=== PATIENT | male | born 1935 ===

== ENCOUNTER 2021-02-07 16:49 | Emergency (ER) | payer SELFPAY ==
[~2021-02-07] VITALS: Ht 170.2 cm; Wt 77.1 kg
[2021-02-07] MEDS ORDERED: HYDROcodone-ACET 10/325MG TAB PO ONE (18:30)
[2021-02-07 19:20] VITALS: BP 150/65
== END 2021-02-07 19:26 | disposition home or self-care (01) ==
LOC: EDBD 16:49 → ER 16:49
DX: S16.1XXA Strain of muscle, fascia and tendon at neck level, initial encounter (principal); S09.8XXA Other specified injuries of head, initial encounter; E11.9 Type 2 diabetes mellitus without complications; I10 Essential (primary) hypertension; E78.00 Pure hypercholesterolemia, unspecified; Z90.49 Acquired absence of other specified parts of digestive tract; V89.2XXA Person injured in unspecified motor-vehicle accident, traffic, initial encounter; Y93.89 Activity, other specified; Y92.410 Unspecified street and highway as the place of occurrence of the external cause; Y99.8 Other external cause status
CPT/HCPCS: 70450; 72125